=== PATIENT | female | born 2000 | race African-American/Black ===

== ENCOUNTER 2024-11-06 13:37 | Emergency (ER) | payer MEDICAID ==
[~2024-11-06] VITALS: Ht 167.6 cm; Wt 61.0 kg
[2024-11-06 13:40] VITALS: O2SAT 98
[2024-11-06 14:48] LABS: CHLORIDE 109 mEq/L (98-107); POTASSIUM 5.2 mEq/L (3.5-5.1); SODIUM 139 mEq/L (136-145)
[2024-11-06 14:49] LABS: CALCIUM 9.9 mg/dL (8.7-10.4); CARBON DIOXIDE 22 mEq/L (21-32)
[2024-11-06 14:54] LABS: CREATININE 0.9 mg/dL (0.6-1.0); GLUCOSE 85 mg/dL (70-105); UREA NITROGEN BLOOD 6 mg/dL (9-23)
[2024-11-06 14:55] LABS: TROPONIN I HIGH SENSITIVITY 5 ng/L (3.0-34)
[2024-11-06 14:56] LABS: ALANINE AMINOTRANSFERASE 10 IU/L (10-49); ALBUMIN 4.5 g/dL (3.2-4.8); ASPARTATE AMINOTRANSFERASE 25 IU/L (<34); BILIRUBIN DIRECT 0.1 mg/dL (<=3.0); BILIRUBIN TOTAL 0.7 mg/dL (0.1-1.0)
[2024-11-06 14:57] LABS: PROTEIN TOTAL 8.1 g/dL (6.0-8.3)
[2024-11-06 15:00] LABS: ETHANOL BLOOD < 10 mg/dL (<10)
[2024-11-06 15:05] LABS: LACTIC ACID 3.8 mmol/L (0.4-2.0)
[2024-11-06 15:14] LABS: BASOPHILS % 0.5 % (0.0-2.0); DIFFERENTIAL COMMENT 0; EOSINOPHILS % 7.8 % (0.0-5.0); HEMATOCRIT. 42.9 % (36.0-48.0); HEMOGLOBIN. 13.6 g/dL (12.0-16.0); LYMPHOCYTES % 18.8 % (20.0-50.0); MEAN CORPUSCULAR HEMOGLOBIN 26.8 pg (28.0-32.0); MEAN CORPUSCULAR HGB CONC 31.6 g/dL (31.0-37.0); MEAN CORPUSCULAR VOLUME 84.9 fL (81.0-99.0); MEAN PLATELET VOLUME 10.6 fl (7.4-10.4); MONOCYTES % 6.6 % (2.0-8.0); NEUTROPHILS % 66.3 % (40.0-76.0); PLATELET 274 x1000/uL (130-400); RED BLOOD CELL COUNT 5.06 mill/uL (4.2-5.4); RED CELL DISTRIBUTION WIDTH 14.9 % (11.6-14.6); WHITE BLOOD COUNT 11.2 x1000/uL (4.5-11.0)
[2024-11-06] MEDS: ACETAMINOPHEN 1000MG/100ML 100 ML IV ONE (15:23)
[2024-11-06] MEDS: SODIUM CHLORIDE 0.9% 1,000 ML IV ONE (15:23)
[2024-11-06] MEDS: MORPHINE SULFATE 2 MG/ML INJ (NOT FOR IM USE) IV ONE (15:28)
[2024-11-06] MEDS: LEVETIRACETAM 1000MG PREMIX 100 ML IV ONE (15:28)
[2024-11-06 16:55] LABS: PROTHROMBIN TIME 11.4 sec (9.6-11.0)
[2024-11-06 17:07] LABS: HCG SCREEN NEGATIVE; TROPONIN I HIGH SENSITIVITY 36 ng/L (3.0-34)
[2024-11-06 17:52] VITALS: TEMP 36.94740
[2024-11-06 21:30] LABS: TROPONIN I HIGH SENSITIVITY 68 ng/L (3.0-34)
[2024-11-07] VITALS: BP 101/61; PULSE 64; RESP 18; O2SAT 99
[2024-11-07] MEDS ORDERED: ACETAMINOPHEN 325MG TABLET PO PRN (01:45)
[2024-11-07] MEDS ORDERED: ONDANSETRON HCL 4MG/2ML INJ IV PRN (01:45)
[2024-11-07] MEDS ORDERED: DOCUSATE SODIUM 100MG CAPSULE PO PRN (01:45)
[2024-11-07] MEDS ORDERED: IPRATROPIUM/ALBUTEROL 0.5-3(2.5)MG/3ML NEB HHN PRN (01:45)
[2024-11-07] MEDS ORDERED: CLONIDINE 0.1MG TABLET PO PRN (01:45)
[2024-11-07] MEDS ORDERED: LORAZEPAM 2MG/ML INJ IV PRN (01:45)
[2024-11-07 01:59] LABS: CLARITY URINE CLOUDY (CLEAR); COLOR URINE ORANGE (YELLOW); GLUCOSE URINE NEGATIVE (NEGATIVE); KETONES URINE NEGATIVE (NEGATIVE); LEUKOCYTE ESTERASE URINE 1+ (NEGATIVE); NITRITE URINE NEGATIVE (NEGATIVE); OCCULT BLOOD URINE 3+ (NEGATIVE); PH URINE 6.5 (4.5-8.0); PROTEIN URINE 1+ (NEGATIVE); SPECIFIC GRAVITY URINE 1.012 (1.005-1.030); UROBILINOGEN URINE 0.2 E.U./dL (0.2-1.0)
[2024-11-07 02:31] LABS: SQUAMOUS EPITHELIAL CELL URINE 3+ /lpf (RARE/1+)
[2024-11-07 02:32] LABS: WBC URINE 25-50 /hpf (0-2)
[2024-11-07 02:33] LABS: BACTERIA URINE 1+; RBC URINE 0-2 /hpf (0-2)
[2024-11-07 02:35] LABS: *AMPHETAMINES SCREEN URINE NEGATIVE (NEGATIVE); *BARBITURATES SCREEN URINE NEGATIVE (NEGATIVE); *BENZODIAZEPINES SCREEN URINE NEGATIVE (NEGATIVE); *COCAINE SCREEN URINE NEGATIVE (NEGATIVE); CANNABINOID URINE SCREEN PRESUMPTIVE POSITIVE (NEGATIVE); ECSTASY MDMA SCREEN URINE NEGATIVE (NEGATIVE); METHADONE URINE SCREEN NEGATIVE (NEGATIVE); OPIATES URINE SCREEN PRESUMPTIVE POSITIVE (NEGATIVE); PHENCYCLIDINE URINE SCREEN NEGATIVE (NEGATIVE)
[2024-11-07] MEDS: ACETAMINOPHEN 325MG TABLET PO PRN (04:46)
[2024-11-07] MEDS ORDERED: LEVETIRACETAM 500MG/5ML CUP PO SCH (09:00)
== END 2024-11-07 06:28 | disposition left against medical advice (07) ==
LOC: ER 13:37
DX: R56.9 Unspecified convulsions (principal); J45.909 Unspecified asthma, uncomplicated; Z32.02 Encounter for pregnancy test, result negative
CPT/HCPCS: 80076; 80048; 80320; 84703; 83605; 85025; 85610; 84484; 36415; 71045; 70450; 93005; 96368; 96365; 96375; 99285; 80305; 81003; 87086; J1953; J2270; J7030; Z7610 ×2; A4606; G0480; J0131

== ENCOUNTER 2025-02-22 09:29 | Emergency (ER) | payer MEDICAID ==
[~2025-02-22] VITALS: Ht 167.6 cm; Wt 59.0 kg
[2025-02-22 09:36] VITALS: BP 138/78; PULSE 72; RESP 18; TEMP 36.8; O2SAT 100
[2025-02-22] MEDS: FLUORESCEIN SODIUM 1MG/STRIP BOTHEYE ONE (10:32)
[2025-02-22] MEDS: TETRACAINE 0.5% OPHTH DROPS 4ML BOTHEYE ONE (10:33)
[2025-02-22] MEDS: IBUPROFEN 600MG TABLET PO ONE (10:56)
[2025-02-22] MEDS ORDERED: SODIUM CHLORIDE 0.9% IRRIG SOLUTION 1000ML IR ONE (11:30)
[2025-02-22] MEDS ORDERED: IBUP-2029 MT (11:31)
[2025-02-22] MEDS ORDERED: PRED5DRO22 BOTHEYE (11:31)
[2025-02-22] MEDS ORDERED: CIPR2.5D20 EACHEYE (11:31)
[2025-02-22] MEDS: SODIUM CHLORIDE 0.9% IRRIG SOL 1,000 ML IR NR (11:45)
== END 2025-02-22 11:45 | disposition home or self-care (01) ==
LOC: ER 09:29
DX: H10.9 Unspecified conjunctivitis (principal); F12.10 Cannabis abuse, uncomplicated; J45.909 Unspecified asthma, uncomplicated; Z88.0 Allergy status to penicillin
CPT/HCPCS: 99283